=== PATIENT | male | born 1960 | race Two or more races ===

== ENCOUNTER 2017-02-01 06:59 | Emergency (ER) | payer MEDICAID, OTHER ==
[~2017-02-01] VITALS: Ht 170.2 cm; Wt 104.3 kg
[2017-02-01 07:35] VITALS: BP 142/100
[2017-02-01] MEDS ORDERED: MORPHINE SULFATE 4 MG/ML SYRG IM ONE (08:15)
[2017-02-01] MEDS ORDERED: ONDANSETRON HCL 4 MG/2 ML VIAL IM ONE (08:15)
== END 2017-02-01 09:09 | disposition home or self-care (01) ==
LOC: ER 07:01
DX: M47.816 Spondylosis without myelopathy or radiculopathy, lumbar region (principal); K80.20 Calculus of gallbladder without cholecystitis without obstruction; F10.10 Alcohol abuse, uncomplicated; R18.8 Other ascites; F17.210 Nicotine dependence, cigarettes, uncomplicated
CPT/HCPCS: 72131; 74176; 96372; 99284; J2270; J2405

== ENCOUNTER 2017-02-19 12:47 | Emergency (ER) | payer MEDICAID, OTHER ==
[~2017-02-19] VITALS: Ht 170.2 cm; Wt 125.6 kg
[2017-02-19 13:54] LABS: Basophils # (auto) 0 uL; Basophils % (auto) 0.5 % (0.0-2.0); Eosinophils # (auto) 0 uL; Eosinophils % (auto) 0.4 % (0.0-7.0); Hematocrit 35.9 % (41.0-53.0); Hemoglobin 12.1 g/dL (13.5-17.5); Lymphocytes # (auto) 0.9 uL; Lymphocytes % (auto) 10.1 % (10.0-50.0); Mean Corpuscular Hgb Conc. 33.9 g/dL (32.0-36.0); Mean Corpuscular Volume 91.6 fL (80.0-100.0); Mean Platelet Volume 7.7 fL (7.4-10.4); Monocytes # (auto) 0.7 uL; Monocytes % (auto) 8.4 % (0.0-12.0); Neutrophils # (auto) 7.2 uL; Neutrophils % (auto) 80.6 % (37.0-80.0); Platelet Count (auto) 166 10^3/uL (140-450); Red Cell Distribution Width 16.3 % (11.6-16.0); White Blood Cell 8.9 10^3/uL (4.4-10.8)
[2017-02-19 14:01] LABS: Albumin 2.7 g/dL (3.4-5.0); BUN/Creatinine Ratio 14.7; Bilirubin, Total 1.6 mg/dL (0.2-1.0); Calcium 8.6 mg/dL (8.5-10.1); Potassium 4.5 mmol/L (3.5-5.1); Total Protein 7.2 g/dL (6.4-8.2)
[2017-02-19 14:33] VITALS: BP 113/55
[2017-02-19] MEDS ORDERED: SODIUM CHLORIDE 0.9% 1,000 ML IV ONE (14:45)
[2017-02-19] MEDS ORDERED: HYDROmorphone HCL 2 MG/ML VL IV ONE (14:45)
[2017-02-19] MEDS ORDERED: PANTOPRAZOLE SODIUM 40 MG/10 ML VIAL IV ONE (14:45)
[2017-02-19] MEDS ORDERED: ONDANSETRON HCL 4 MG/2 ML VIAL IV ONE (14:45)
[2017-02-19 16:14] LABS: Urine RBC None Seen /hpf (0 - 3)
[2017-02-19 16:29] LABS: Urine Blood Negative /uL (Negative); Urine Glucose Normal (Normal); Urine Ketone Negative (Negative); Urine Mucus FEW (None Seen); Urine Nitrite Negative (Negative); Urine Squamous Epithelial Cell FEW /hpf (<5); Urine Urobilinogen Normal (Negative); Urine pH 5.5 (5.0-8.0)
[2017-02-19 16:47] LABS: Urine Bilirubin Negative (Negative); Urine Color Amber (Yellow)
== END 2017-02-19 16:31 | disposition home or self-care (01) ==
LOC: ER 12:52
DX: R10.9 Unspecified abdominal pain (principal); K74.60 Unspecified cirrhosis of liver; F17.210 Nicotine dependence, cigarettes, uncomplicated
CPT/HCPCS: 36415; 74176; 80053; 81001; 83690; 85025; 93005; 96374; 96375; 99285; C9113; J1170; J2405

== ENCOUNTER 2017-02-23 08:20 | Emergency (ER) | payer MEDICAID ==
[~2017-02-23] VITALS: Ht 170.2 cm; Wt 117.9 kg
[2017-02-23] MEDS ORDERED: PROMETHAZINE HCL 25 MG/ML 1ML IV PRN (10:15)
[2017-02-23] MEDS ORDERED: SODIUM CHLORIDE 0.9% 1,000 ML IV ONE (10:15)
[2017-02-23] MEDS ORDERED: KETOROLAC TROMETH 30 MG/ML 1ML VIAL IV ONE (10:15)
[2017-02-23 11:05] LABS: Urine RBC None Seen /hpf (0 - 3)
[2017-02-23 11:09] LABS: Basophils # (auto) 0 uL; Basophils % (auto) 0.3 % (0.0-2.0); Eosinophils # (auto) 0.1 uL; Eosinophils % (auto) 0.7 % (0.0-7.0); Hematocrit 34.1 % (41.0-53.0); Hemoglobin 11.7 g/dL (13.5-17.5); Lymphocytes # (auto) 0.9 uL; Lymphocytes % (auto) 9.5 % (10.0-50.0); Mean Corpuscular Hemoglobin 30.9 pg (28.0-32.0); Mean Corpuscular Hgb Conc. 34.2 g/dL (32.0-36.0); Mean Corpuscular Volume 90.2 fL (80.0-100.0); Monocytes # (auto) 0.8 uL; Monocytes % (auto) 8.2 % (0.0-12.0); Neutrophils % (auto) 81.3 % (37.0-80.0); Platelet Count (auto) 187 10^3/uL (140-450); Red Cell Distribution Width 16.8 % (11.6-16.0); White Blood Cell 9.9 10^3/uL (4.4-10.8)
[2017-02-23 11:36] LABS: BUN/Creatinine Ratio 16.7; Calcium 8.4 mg/dL (8.5-10.1); Potassium 4.3 mmol/L (3.5-5.1)
[2017-02-23 11:42] LABS: Urine Blood Negative /uL (Negative); Urine Color Yellow (Yellow); Urine Glucose Normal (Normal); Urine Ketone Negative (Negative); Urine Nitrite Negative (Negative)
[2017-02-23 12:24] LABS: Urine Bilirubin Negative (Negative)
[2017-02-23] MEDS ORDERED: LEVOFLOXACIN 500 MG TAB PO ONE (13:00)
[2017-02-23 13:30] VITALS: BP 129/70
== END 2017-02-23 15:35 | disposition home or self-care (01) ==
LOC: ER 08:25
DX: J18.9 Pneumonia, unspecified organism (principal); R07.81 Pleurodynia; K74.60 Unspecified cirrhosis of liver; F17.210 Nicotine dependence, cigarettes, uncomplicated
CPT/HCPCS: 36415; 71020; 80048; 81001; 83690; 83735; 85025; 96361; 96374; 96375; 99285; J1885; J2550; J7030

== ENCOUNTER 2017-02-28 12:13 | Emergency (ER) | payer MEDICAID ==
[~2017-02-28] VITALS: Ht 170.2 cm; Wt 113.4 kg
[2017-02-28 13:27] LABS: Basophils # (auto) 0 uL; Basophils % (auto) 0.2 % (0.0-2.0); DEFINITIVE VIEW TRANSMISSION; Eosinophils # (auto) 0.3 uL; Eosinophils % (auto) 1.7 % (0.0-7.0); Hematocrit 37.5 % (41.0-53.0); Hemoglobin 13.1 g/dL (13.5-17.5); Lymphocytes # (auto) 1.8 uL; Lymphocytes % (auto) 9.3 % (10.0-50.0); Mean Corpuscular Hemoglobin 30.8 pg (28.0-32.0); Mean Corpuscular Hgb Conc. 34.8 g/dL (32.0-36.0); Mean Corpuscular Volume 88.4 fL (80.0-100.0); Mean Platelet Volume 8.3 fL (7.4-10.4); Monocytes # (auto) 1.7 uL; Monocytes % (auto) 9.1 % (0.0-12.0); Neutrophils # (auto) 15.2 uL; Neutrophils % (auto) 79.7 % (37.0-80.0); Platelet Count (auto) 341 10^3/uL (140-450); Red Cell Distribution Width 15.9 % (11.6-16.0)
[2017-02-28 13:54] LABS: Alkaline Phosphatase 107 U/L (45-117); Anion Gap 17 (5-15); Aspartate Aminotransferase 15 U/L (15-37); Bilirubin, Total 1.5 mg/dL (0.2-1.0); Blood Urea Nitrogen 76 mg/dL (7-18); Calcium 9.6 mg/dL (8.5-10.1); Carbon Dioxide 22 mmol/L (21-32); Chloride 80 mmol/L (98-107); GFR African American 10 mL/min; GFR Non-African American 8 mL/min; Glucose 112 mg/dL (74-106); Potassium 4.4 mmol/L (3.5-5.1); Total Protein 8.8 g/dL (6.4-8.2)
[2017-02-28 14:19] LABS: Sodium 119 mmol/L (136-145)
[2017-02-28] MEDS: PIPERACILLIN-TAZOB 3.375GM 100 ML IV ONE (14:27)
[2017-02-28] MEDS ORDERED: SODIUM CHLORIDE 0.9% 1,000 ML IV ONE (15:33)
[2017-02-28] MEDS: SODIUM CHLORIDE 0.9% 1,000 ML IV ONE (15:55)
[2017-02-28 16:37] VITALS: BP 132/69
== END 2017-02-28 14:33 | disposition short-term general hospital (02) ==
LOC: ER 12:13
DX: A41.9 Sepsis, unspecified organism (principal); K80.20 Calculus of gallbladder without cholecystitis without obstruction; K70.30 Alcoholic cirrhosis of liver without ascites; Z90.49 Acquired absence of other specified parts of digestive tract; F17.210 Nicotine dependence, cigarettes, uncomplicated
CPT/HCPCS: 36415; 71020; 80053; 84484; 85025; 93005; 94761; 96361; 96365; 99285; J2543

== ENCOUNTER 2017-07-07 03:16 | Inpatient (IN) | payer OTHER ==
[~2017-07-07] VITALS: Ht 167.6 cm; Wt 144.7 kg
[2017-07-07 04:05] LABS: Basophils # (auto) 0 uL; Eosinophils # (auto) 0 uL; Eosinophils % (auto) 0.2 % (0.0-7.0); Mean Platelet Volume 7.8 fL (6.9-10.8); Monocytes # (auto) 0.9 uL; Nucleated Red Blood Cells % 0.1 %
[2017-07-07 04:07] LABS: Basophils % (auto) 0.2 % (0.0-2.0); Hematocrit 34.1 % (41.0-53.0); Hemoglobin 11.7 g/dL (13.5-17.5); Lymphocytes # (auto) 1.1 uL; Lymphocytes % (auto) 6.7 % (10.0-50.0); Mean Corpuscular Hemoglobin 35.1 pg (28.0-32.0); Mean Corpuscular Hgb Conc. 34.3 g/dL (32.0-36.0); Mean Corpuscular Volume 102.5 fL (80.0-100.0); Monocytes % (auto) 5.7 % (0.0-12.0); Neutrophils # (auto) 13.9 uL; Neutrophils % (auto) 87.2 % (37.0-80.0); Platelet Count (auto) 103 10^3/uL (140-450); White Blood Cell 15.9 10^3/uL (4.4-10.8)
[2017-07-07 04:35] LABS: Albumin 2.4 g/dL (3.4-5.0); Alkaline Phosphatase 95 U/L (45-117); Amylase 961 U/L (25-115); Anion Gap 12 (5-15); Aspartate Aminotransferase 112 U/L (15-37); BUN/Creatinine Ratio 12.1; Bilirubin, Total 19.1 mg/dL (0.2-1.0); Blood Urea Nitrogen 16 mg/dL (7-18); Calcium 8.1 mg/dL (8.5-10.1); Carbon Dioxide 24 mmol/L (21-32); Chloride 95 mmol/L (98-107); GFR African American 72 mL/min; GFR Non-African American 60 mL/min; Glucose 95 mg/dL (74-106); Magnesium 1.7 mg/dL (1.6-2.6); Potassium 4.2 mmol/L (3.5-5.1); Sodium 131 mmol/L (136-145)
[2017-07-07 04:49] LABS: Urine Bilirubin 2+ (Negative); Urine Blood Negative /uL (Negative); Urine Color Brown (Yellow); Urine Glucose Normal (Normal); Urine Granular Cast MANY /lpf (0); Urine Hyaline Cast FEW /lpf (0 - 2); Urine Ketone Negative (Negative); Urine Mucus FEW (None Seen); Urine Nitrite Negative (Negative); Urine RBC 4 /hpf (0 - 3); Urine pH 5.5 (5.0-8.0)
[2017-07-07] MEDS ORDERED: ONDANSETRON HCL 4 MG/2 ML VIAL IV ONE ×2 (05:00→07:30)
[2017-07-07] MEDS ORDERED: MORPHINE SULF INJ 2 MG/ML SYRINGE 1ML IV ONE ×2 (05:00→07:30)
[2017-07-07] MEDS ORDERED: SODIUM CHLORIDE 0.9% 1,000 ML IV ONE (07:17)
[2017-07-07] MEDS ORDERED: PIPERACILLIN-TAZOB 3.375GM 100 ML IV ONE (07:30)
[2017-07-07] MEDS ORDERED: metroNIDAZOLE 500MG/100ML 100 ML IV ONE (07:30)
[2017-07-07 08:35] LABS: Lactic Acid w/Reflex 2.7 mmol/L (0.4-2.0)
[2017-07-07 08:36] LABS: REFLEX LACTIC ACID YES OR NO YES
[2017-07-07] MEDS ORDERED: SODIUM CHLORIDE 0.9% 1,000 ML IV SCH (08:39)
[2017-07-07] MEDS ORDERED: LORazepam 2MG/ML-1ML VIAL IV PRN (08:45)
[2017-07-07] MEDS ORDERED: NITROGLYCERIN 0.4 MG SL TAB SL PRN (08:45)
[2017-07-07] MEDS ORDERED: chlordiazePOXIDE HCL 25 MG CAP PO PRN (08:45)
[2017-07-07] MEDS ORDERED: MORPHINE SULF INJ 2 MG/ML SYRINGE 1ML IV PRN (08:45)
[2017-07-07] MEDS ORDERED: PROMETHAZINE HCL 25 MG/ML 1ML IV PRN (08:45)
[2017-07-07] MEDS ORDERED: THIAMINE HCL 100 MG/ML 2ML VIAL IV ONE (08:45)
[2017-07-07] MEDS: PANTOPRAZOLE 40 MG/10 ML VIAL IV SCH (10:00)
[2017-07-07] MEDS: THIAMINE HCL 100 MG/ML 2ML VIAL IV SCH (10:00)
[2017-07-07] MEDS: cefTRIAXone 1GM/50ML D5W 50 ML IV SCH (11:00)
[2017-07-07] MEDS: chlordiazePOXIDE HCL 5 MG CAP PO SCH ×3 (12:12→23:46)
[2017-07-07] MEDS: metroNIDAZOLE 500MG/100ML 100 ML IV SCH ×2 (14:50→22:02)
[2017-07-07 18:48] VITALS: BP 82/45
[2017-07-07 22:37] VITALS: BP 75/50
[2017-07-07] MEDS: MORPHINE SULF INJ 2 MG/ML SYRINGE 1ML IV PRN (23:59)
[2017-07-08] VITALS (17 sets, daily range): BP systolic 66–96; BP diastolic 27–66
[2017-07-08] MEDS: MORPHINE SULF INJ 2 MG/ML SYRINGE 1ML IV PRN (04:30)
[2017-07-08] MEDS: metroNIDAZOLE 500MG/100ML 100 ML IV SCH ×3 (05:48→22:30)
[2017-07-08] MEDS: chlordiazePOXIDE HCL 5 MG CAP PO SCH ×2 (05:48→12:19)
[2017-07-08 07:05] LABS: Eosinophils # (auto) 0.1 uL; Hemoglobin 9.8 g/dL (13.5-17.5); INR 2.02 (0.9-1.15); Partial Thromboplastin Time 47.7 sec (22.64-33.71); Prothrombin Time 22.2 sec (9.37-12.3); White Blood Cell 10.4 10^3/uL (4.4-10.8)
[2017-07-08 07:08] LABS: Basophils # (auto) 0.2 uL; Basophils % (auto) 1.8 % (0.0-2.0); Eosinophils % (auto) 1.4 % (0.0-7.0); Hematocrit 27.9 % (41.0-53.0); Lymphocytes # (auto) 0.6 uL; Lymphocytes % (auto) 5.5 % (10.0-50.0); Mean Corpuscular Hemoglobin 36.1 pg (28.0-32.0); Mean Corpuscular Hgb Conc. 35.2 g/dL (32.0-36.0); Mean Corpuscular Volume 102.4 fL (80.0-100.0); Mean Platelet Volume 7.4 fL (6.9-10.8); Monocytes # (auto) 0.5 uL; Monocytes % (auto) 5.1 % (0.0-12.0); Neutrophils % (auto) 86.2 % (37.0-80.0); Platelet Count (auto) 87 10^3/uL (140-450); Red Cell Distribution Width 18.3 % (11.8-14.3)
[2017-07-08 07:14] LABS: Potassium 4.5 mmol/L (3.5-5.1)
[2017-07-08 07:30] LABS: Bilirubin, Total 17.6 mg/dL (0.2-1.0); Total Protein 5.6 g/dL (6.4-8.2)
[2017-07-08] MEDS ORDERED: SODIUM CHLORIDE 0.9% 1,000 ML IV ONE (08:39)
[2017-07-08] MEDS: cefTRIAXone 1GM/50ML D5W 50 ML IV SCH (08:53)
[2017-07-08] MEDS: THIAMINE HCL 100 MG/ML 2ML VIAL IV SCH (09:19)
[2017-07-08] MEDS: PANTOPRAZOLE 40 MG/10 ML VIAL IV SCH (09:20)
[2017-07-08] MEDS ORDERED: KETOROLAC TROMETH 30 MG/ML 1ML VIAL IV ONE (16:30)
[2017-07-08] MEDS: SODIUM CHLORIDE 0.9% 1,000 ML IV SCH (18:49)
[2017-07-08 18:56] LABS: Albumin 1.8 g/dL (3.4-5.0); BUN/Creatinine Ratio 13.1; Calcium 7.5 mg/dL (8.5-10.1); Total Protein 5.3 g/dL (6.4-8.2)
[2017-07-08 18:58] LABS: Potassium 4.5 mmol/L (3.5-5.1)
[2017-07-08 18:59] LABS: Bilirubin, Total 16.1 mg/dL (0.2-1.0)
[2017-07-08] MEDS ORDERED: ALBUMIN 5% 250 ML IV ONE ×2 (20:30→22:30)
[2017-07-08] MEDS ORDERED: SODIUM CHLORIDE 0.9% 500 ML IV ONE ×2 (20:30→22:30)
[2017-07-09] VITALS (61 sets, daily range): BP systolic 61–133; BP diastolic 33–82
[2017-07-09] MEDS: NOREPINEPHRINE 8 MG/250ML KIT 250 ML IV SCH ×2 (00:33→20:30)
[2017-07-09] MEDS: MORPHINE SULF INJ 2 MG/ML SYRINGE 1ML IV PRN (02:08)
[2017-07-09] MEDS: SODIUM CHLORIDE 0.9% 1,000 ML IV SCH ×4 (04:00→21:48)
[2017-07-09] MEDS: metroNIDAZOLE 500MG/100ML 100 ML IV SCH ×3 (05:44→21:47)
[2017-07-09] MEDS: cefTRIAXone 1GM/50ML D5W 50 ML IV SCH (09:00)
[2017-07-09 09:23] LABS: Basophils # (auto) 0.1 uL; Basophils % (auto) 0.5 % (0.0-2.0); Eosinophils # (auto) 0.2 uL; Mean Platelet Volume 7.4 fL (6.9-10.8); Monocytes # (auto) 1.1 uL
[2017-07-09 09:24] LABS: Hematocrit 33.3 % (41.0-53.0); Hemoglobin 11.2 g/dL (13.5-17.5); Lymphocytes # (auto) 1.3 uL; Lymphocytes % (auto) 7.6 % (10.0-50.0); Mean Corpuscular Hemoglobin 35.2 pg (28.0-32.0); Mean Corpuscular Hgb Conc. 33.8 g/dL (32.0-36.0); Mean Corpuscular Volume 104.1 fL (80.0-100.0); Monocytes % (auto) 6.4 % (0.0-12.0); Neutrophils # (auto) 14.9 uL; Neutrophils % (auto) 84.5 % (37.0-80.0); Platelet Count (auto) 167 10^3/uL (140-450); White Blood Cell 17.6 10^3/uL (4.4-10.8)
[2017-07-09 10:02] LABS: Albumin 2.5 g/dL (3.4-5.0); BUN/Creatinine Ratio 13.9; Bilirubin, Total 20.5 mg/dL (0.2-1.0); Calcium 7.8 mg/dL (8.5-10.1); Potassium 4.1 mmol/L (3.5-5.1); Total Protein 6.3 g/dL (6.4-8.2)
[2017-07-09] MEDS: THIAMINE HCL 100 MG/ML 2ML VIAL IV SCH (10:22)
[2017-07-09] MEDS: PANTOPRAZOLE 40 MG/10 ML VIAL IV SCH (10:22)
[2017-07-09] MEDS: PHYTONADIONE ORAL Susp 10 mg/10ml PO SCH (19:30)
[2017-07-10] VITALS (83 sets, daily range): BP systolic 59–149; BP diastolic 33–106
[2017-07-10] MEDS: MORPHINE SULF INJ 2 MG/ML SYRINGE 1ML IV PRN ×5 (00:06→20:39)
[2017-07-10] MEDS: metroNIDAZOLE 500MG/100ML 100 ML IV SCH ×3 (06:52→22:38)
[2017-07-10] MEDS: cefTRIAXone 1GM/50ML D5W 50 ML IV SCH (08:56)
[2017-07-10] MEDS: THIAMINE HCL 100 MG/ML 2ML VIAL IV SCH (09:32)
[2017-07-10] MEDS: PANTOPRAZOLE 40 MG/10 ML VIAL IV SCH (09:32)
[2017-07-10] MEDS: SODIUM CHLORIDE 0.9% 1,000 ML IV SCH ×2 (09:43→17:57)
[2017-07-10] MEDS: PHYTONADIONE ORAL Susp 10 mg/10ml PO SCH (19:30)
[2017-07-10] MEDS: ALBUMIN 25% 100 ML IV SCH (22:39)
[2017-07-11] VITALS (92 sets, daily range): BP systolic 72–155; BP diastolic 22–120
[2017-07-11] MEDS: NOREPINEPHRINE 8 MG/250ML KIT 250 ML IV SCH ×3 (00:15→13:51)
[2017-07-11] MEDS: SODIUM CHLORIDE 0.9% 1,000 ML IV SCH ×4 (01:30→21:28)
[2017-07-11] MEDS: MORPHINE SULF INJ 2 MG/ML SYRINGE 1ML IV PRN ×5 (03:00→22:44)
[2017-07-11 04:30] LABS: INR 1.84 (0.9-1.15); Partial Thromboplastin Time 50.1 sec (22.64-33.71); Prothrombin Time 20.2 sec (9.37-12.3)
[2017-07-11] MEDS: ALBUMIN 25% 100 ML IV SCH ×3 (05:31→23:33)
[2017-07-11] MEDS: metroNIDAZOLE 500MG/100ML 100 ML IV SCH ×3 (06:31→22:34)
[2017-07-11 08:06] LABS: Basophils # (auto) 0.1 uL; Basophils % (auto) 1.2 % (0.0-2.0); Eosinophils # (auto) 0.2 uL; Hemoglobin 9.4 g/dL (13.5-17.5); Nucleated Red Blood Cells % 0.1 %; Platelet Count (auto) 100 10^3/uL (140-450)
[2017-07-11 08:08] LABS: Eosinophils % (auto) 2.6 % (0.0-7.0); Hematocrit 27.7 % (41.0-53.0); Lymphocytes % (auto) 12.7 % (10.0-50.0); Mean Corpuscular Hemoglobin 36.1 pg (28.0-32.0); Mean Corpuscular Hgb Conc. 34.1 g/dL (32.0-36.0); Mean Corpuscular Volume 105.9 fL (80.0-100.0); Mean Platelet Volume 7.2 fL (6.9-10.8); Monocytes # (auto) 0.8 uL; Monocytes % (auto) 9.4 % (0.0-12.0); Neutrophils % (auto) 74.1 % (37.0-80.0); White Blood Cell 8.1 10^3/uL (4.4-10.8)
[2017-07-11 08:16] LABS: Albumin 2.2 g/dL (3.4-5.0); Calcium 7.5 mg/dL (8.5-10.1); Potassium 3.8 mmol/L (3.5-5.1)
[2017-07-11 08:23] LABS: Bilirubin, Total 13.7 mg/dL (0.2-1.0); Total Protein 5.9 g/dL (6.4-8.2)
[2017-07-11 09:57] LABS: Anisocytosis Slight; Macrocytosis Moderate; Platelet Estimate Decreased
[2017-07-11] MEDS: cefTRIAXone 1GM/50ML D5W 50 ML IV SCH (10:32)
[2017-07-11] MEDS: THIAMINE HCL 100 MG/ML 2ML VIAL IV SCH (10:33)
[2017-07-11] MEDS: PANTOPRAZOLE 40 MG/10 ML VIAL IV SCH (10:33)
[2017-07-11] MEDS: MIDODRINE HCL 10 MG TAB PO SCH ×2 (13:50→22:35)
[2017-07-11] MEDS ORDERED: LIDOCAINE 2%HCL (LOCAL ANESTH.) INJ 20ML MDV ONE (14:33)
[2017-07-11] MEDS ORDERED: MIDAZOLAM HCL 1MG/1ML-2 ML VIAL ONE (14:50)
[2017-07-11] MEDS ORDERED: fentaNYL CITRATE 100 MCG/2 ML VL ONE (14:50)
[2017-07-11] MEDS: PHYTONADIONE ORAL Susp 10 mg/10ml PO SCH (18:39)
[2017-07-12] VITALS (59 sets, daily range): BP systolic 82–133; BP diastolic 46–80
[2017-07-12] MEDS: MORPHINE SULF INJ 2 MG/ML SYRINGE 1ML IV PRN ×4 (02:45→21:14)
[2017-07-12 04:05] LABS: Eosinophils # (auto) 0.1 uL; Eosinophils % (auto) 2.3 % (0.0-7.0); Hemoglobin 8.8 g/dL (13.5-17.5); Lymphocytes # (auto) 0.7 uL; Mean Platelet Volume 7.4 fL (6.9-10.8); Monocytes # (auto) 0.7 uL; Neutrophils # (auto) 4.8 uL; Platelet Count (auto) 77 10^3/uL (140-450); White Blood Cell 6.4 10^3/uL (4.4-10.8)
[2017-07-12 04:09] LABS: Basophils # (auto) 0 uL; Basophils % (auto) 0.8 % (0.0-2.0); Hematocrit 25.3 % (41.0-53.0); Lymphocytes % (auto) 11.3 % (10.0-50.0); Mean Corpuscular Hemoglobin 36.3 pg (28.0-32.0); Mean Corpuscular Hgb Conc. 34.8 g/dL (32.0-36.0); Mean Corpuscular Volume 104.5 fL (80.0-100.0); Monocytes % (auto) 10.2 % (0.0-12.0); Neutrophils % (auto) 75.4 % (37.0-80.0); Red Cell Distribution Width 19.1 % (11.8-14.3)
[2017-07-12 04:25] LABS: Albumin 2.4 g/dL (3.4-5.0); BUN/Creatinine Ratio 11.2; Bilirubin, Total 13.6 mg/dL (0.2-1.0); Calcium 7.6 mg/dL (8.5-10.1); Potassium 3.8 mmol/L (3.5-5.1); Total Protein 5.6 g/dL (6.4-8.2)
[2017-07-12] MEDS: MIDODRINE HCL 10 MG TAB PO SCH ×3 (06:19→21:15)
[2017-07-12] MEDS: metroNIDAZOLE 500MG/100ML 100 ML IV SCH ×3 (06:24→21:15)
[2017-07-12] MEDS: ALBUMIN 25% 100 ML IV SCH (07:36)
[2017-07-12] MEDS: cefTRIAXone 1GM/50ML D5W 50 ML IV SCH (09:00)
[2017-07-12] MEDS: THIAMINE HCL 100 MG/ML 2ML VIAL IV SCH (09:46)
[2017-07-12] MEDS: PANTOPRAZOLE 40 MG/10 ML VIAL IV SCH (09:46)
[2017-07-12] MEDS: SODIUM CHLORIDE 0.9% 1,000 ML IV SCH (09:47)
[2017-07-12] MEDS ORDERED: LACTULOSE 20Gm/30ML SOLN PO ONE (13:00)
[2017-07-13 05:00] VITALS: BP 83/51
[2017-07-13] MEDS: MIDODRINE HCL 10 MG TAB PO SCH ×3 (05:50→22:12)
[2017-07-13] MEDS: metroNIDAZOLE 500MG/100ML 100 ML IV SCH ×3 (05:50→22:12)
[2017-07-13] MEDS: MORPHINE SULF INJ 2 MG/ML SYRINGE 1ML IV PRN ×2 (05:51→10:45)
[2017-07-13 09:00] VITALS: BP 84/47
[2017-07-13 10:40] VITALS: BP 103/58
[2017-07-13] MEDS: LACTULOSE 20Gm/30ML SOLN PO SCH (11:02)
[2017-07-13] MEDS: cefTRIAXone 1GM/50ML D5W 50 ML IV SCH (11:02)
[2017-07-13 13:00] VITALS: BP 93/50
[2017-07-13 17:00] VITALS: BP 84/42
[2017-07-13] MEDS ORDERED: HYDROmorphone HCL 2 MG/ML VL IV PRN (17:45)
[2017-07-13 22:00] VITALS: BP 96/54
[2017-07-13] MEDS ORDERED: MIDODRINE HCL 10 MG TAB PO SCH (22:00)
[2017-07-13] MEDS: HYDROcodone-ACET 7.5/325MG TAB PO PRN (22:14)
[2017-07-14] MEDS: HYDROcodone-ACET 7.5/325MG TAB PO PRN ×2 (02:25→08:43)
[2017-07-14 05:00] VITALS: BP 98/51
[2017-07-14] MEDS: MIDODRINE HCL 10 MG TAB PO SCH (05:52)
[2017-07-14] MEDS: metroNIDAZOLE 500MG/100ML 100 ML IV SCH (05:52)
[2017-07-14] MEDS: cefTRIAXone 1GM/50ML D5W 50 ML IV SCH (08:43)
[2017-07-14] MEDS: LACTULOSE 20Gm/30ML SOLN PO SCH (08:43)
[2017-07-14 09:00] VITALS: BP 84/53
[2017-07-14 13:00] VITALS: BP 91/53
[2017-07-14 13:57] VITALS: BP 91/53
== END 2017-07-14 15:42 | disposition home health service (06) | DRG 280 ==
LOC: EDBD 03:16 → ER 03:24 → TELE 03:25 → TELE-EAST 18:07 → DOU IN ICU 07-08 21:05 → ICU WEST 07-10 05:29 → CENTRAL 07-12 14:51
PROVIDERS: ADMIT Internal Medicine; ATTEND Internal Medicine Pulmonary Disease
DX: K70.40 Alcoholic hepatic failure without coma (principal); K70.31 Alcoholic cirrhosis of liver with ascites; R65.11 Systemic inflammatory response syndrome (SIRS) of non-infectious origin with acute organ dysfunction; D68.4 Acquired coagulation factor deficiency; E44.0 Moderate protein-calorie malnutrition; K85.90 Acute pancreatitis without necrosis or infection, unspecified; K76.6 Portal hypertension; E87.1 Hypo-osmolality and hyponatremia; I50.9 Heart failure, unspecified; R16.1 Splenomegaly, not elsewhere classified; R60.1 Generalized edema; K80.20 Calculus of gallbladder without cholecystitis without obstruction; F10.988 Alcohol use, unspecified with other alcohol-induced disorder; K86.0 Alcohol-induced chronic pancreatitis; F41.9 Anxiety disorder, unspecified; Z51.5 Encounter for palliative care; M19.90 Unspecified osteoarthritis, unspecified site; I83.90 Asymptomatic varicose veins of unspecified lower extremity; Y90.9 Presence of alcohol in blood, level not specified; F17.210 Nicotine dependence, cigarettes, uncomplicated; Z90.49 Acquired absence of other specified parts of digestive tract; Z82.61 Family history of arthritis; Z68.43 Body mass index [BMI] 50.0-59.9, adult
CPT/HCPCS: 36415; 71010; 74176; 76705; 80053; 80320; 81001; 82140; 82150; 82570; 82962; 83605; 83690; 83735; 84156; 84300; 84484; 85025; 85610; 85730; 87040; 87081; 87086; 93005; 96365; 96375; 96376; 97116; 97163; 97530; 99291; C9113; J0696; J1885; J2250; J2405; J2543; J3490